=== PATIENT | female | born 1980 | race African-American/Black ===

== ENCOUNTER 2016-08-23 03:15 | Emergency (ER) | payer OTHER ==
[~2016-08-23] VITALS: Ht 154.9 cm; Wt 99.8 kg
[~2016-08-23 03:15] MED LIST: CIPROFLOXACIN500 M1 PO; FLAGYL500 MG PO; PHENERGAN 25 MG25 M1 PO; TRAMADOL 50 MG50 MG PO
[2016-08-23] MEDS ORDERED: HYDROCODONE-AP1 EAC6 PO (03:18)
[2016-08-23 04:07] LABS: URINE BILIRUBIN NEGATIVE (Negative); URINE BLOOD TRACE (Negative); URINE COLOR YELLOW; URINE GLUCOSE-RANDOM* NEGATIVE (Negative); URINE KETONES NEGATIVE (Negative); URINE LEUKOCYTES-REFLEX NEGATIVE (Negative); URINE PROTEIN (DIPSTICK) NEGATIVE (Negative); URINE SPECIFIC GRAVITY 1.025 (1.003-1.035); URINE UROBILINOGEN 0.2 E.U./dl (0.2-1.0)
[2016-08-23 04:50] LABS: ABSOLUTE NEUTROPHILS 7.6 thou/uL (1.4-8.2); BASOPHILS 0.8 % (0.0-2.0); EOSINOPHILS 5.4 % (0.0-3.0); HEMATOCRIT 28.1 % (37.0-47.0); HEMOGLOBIN 8.9 gm/dL (12.0-15.0); LYMPHOCYTES 24.6 % (24.0-44.0); MCHC 31.6 g/dL (28.0-37.0); MONOCYTES 7.3 % (1.0-8.0); PLATELET COUNT 454 thou/uL (150-400); POLYS 61.9 % (36.0-66.0); RBC 3.56 mil/uL (4.20-5.00); RDW 19.2 % (10.5-14.5); WBC 12.3 thou/uL (4.0-11.0)
[2016-08-23 04:53] LABS: MANUAL DIFF NO
[2016-08-23 04:56] LABS: CALCIUM 8.6 mg/dL (8.5-10.1); CREATININE 0.7 mg/dL (0.6-1.0); POTASSIUM 3.6 mmol/L (3.5-5.1)
[2016-08-23 05:03] LABS: ALBUMIN 3.4 g/dL (3.4-5.0); TOTAL BILIRUBIN 0.3 mg/dL (<0.1-1.0); TOTAL PROTEIN 6.7 g/dL (6.4-8.2)
[2016-08-23] MEDS ORDERED: NAPROSYN500 MG PO (06:00)
[2016-08-23] MEDS ORDERED: NORCO 5-325 TA1 EACH PO (06:00)
[2016-08-23 06:36] VITALS: BP 145/68
== END 2016-08-23 06:38 | disposition home or self-care (01) ==
LOC: ER 03:15
PROVIDERS: Emergency Medicine
DX: N92.0 Excessive and frequent menstruation with regular cycle (principal); D64.9 Anemia, unspecified; D72.829 Elevated white blood cell count, unspecified; F17.210 Nicotine dependence, cigarettes, uncomplicated; Z90.89 Acquired absence of other organs